=== PATIENT | male | born 1995 | race Asian ===

== ENCOUNTER 2018-07-26 21:05 | Emergency (ER) | payer MEDICAID, OTHER ==
[~2018-07-26] VITALS: Ht 177.8 cm; Wt 77.1 kg
[2018-07-26 21:28] VITALS: BP 147/87
--- NOTE | 2018-07-26 21:33 | NUR ---
PT AMBULATE DTO DONNIE PINO
--- NOTE | 2018-07-26 22:45 | NUR ---
PT AMBULATED TO ED BED 2
--- NOTE | 2018-07-26 23:00 | NUR ---
EYE REDNESS AND RASH AROUND BOTH EYE X 1 WK. PT STATED HAS RASH TO GENITAL AREA, TREAT BY ATB. AAO X4, RESPIRATIONS EVEN AD UNLABORED, SKIN WARM/PINK/DRY, RASH BOTH EYE. VSS, NO ACUTE DISTRESS AT THIS TIME. ER MD MADE AWARE OF PT STATUS
--- NOTE | 2018-07-26 23:36 | NUR ---
Patient discharged with v/s stable. Written and verbal after care instructions given and explained. Patient alert, oriented and verbalized understanding of instructions. Ambulatory with steady gait. All questions addressed prior to discharge. ID band removed. Patient advised to follow up with PMD. Rx of TOBRACYCIN 0.3% OPH. SOLUTION, KEFLEX 500 MG, ZYRTEC 10 MG given. Patient educated on indication of medication including possible reaction and side effects. Opportunity to ask questions provided and answered.
[2018-07-26 23:37] VITALS: BP 127/72
== END 2018-07-26 23:36 | disposition home or self-care (01) ==
LOC: MED 21:05
DX: H10.13 Acute atopic conjunctivitis, bilateral (principal)
CPT/HCPCS: 99283